=== PATIENT | female | born 1985 | race Caucasian/White ===

== ENCOUNTER 2021-05-16 15:01 | Emergency (ER) | payer OTHER ==
[~2021-05-16] VITALS: Ht 154.9 cm; Wt 69.0 kg
[2021-05-16 15:12] VITALS: BP 133/81
== END 2021-05-16 15:39 | disposition home or self-care (01) ==
LOC: M.ERS 15:01
DX: R53.1 Weakness (principal); Z88.2 Allergy status to sulfonamides